=== PATIENT | male | born 1965 | race American Indian/Alaskan Native ===

== ENCOUNTER 2016-06-19 09:32 | Emergency (ER) | payer MEDICAID ==
[2016-06-19 09:40] VITALS: RESP 18; O2SAT 95; BMI 26.3
--- NOTE | 2016-06-19 10:38 | C.PDOC ---
History Of Present Illness 50-year-old male, PMHx includes HIV (Viral load is undetectable, CD4 >1000 as per pt), and COPD, presents to the emergency department with complaints of three -day duration of productive cough (w/ yellow sputum), muscle aches and congestion x3 days. Patient denies vomiting, nausea, diarrhea, fevers, chills, chest pain or any other associated symptoms. No other complaints at this time. States he f/u with his doctor every month. Chief Complaint (Nursing): Cough, Cold, Congestion History Per: Patient History/Exam Limitations: no limitations Onset/Duration Of Symptoms: Days Current Symptoms Are (Timing): Still Present Severity: Moderate Past Medical History Reviewed: Historical Data, Nursing Documentation, Vital Signs Vital Signs: Last Vital Signs Temp 97.5 F L 06/19/16 11:52 Pulse 71 06/19/16 11:52 Resp 18 06/19/16 11:52 BP 101/71 06/19/16 11:52 Pulse Ox 95 06/22/16 22:49 - Medical History PMH: Anxiety, Bronchitis, COPD, Emphysema, Hepatitis (C), HIV, Sexually Transmitted Disease (HIV) Denies: Anemia, Arthritis, Asthma, Bipolar Disorder, Depression, Fractures, Osteoporosis, Paranoia, Pneumonia, Post Traumatic Stress Disorder, Pulmonary Embolism, Chronic Kidney Disease, Rheumatoid Arthritis, Schizophrenia, Sickle Cell Disease, Sleep Apnea Surgical History: Denies: Pacemaker - [facility] Procedures ANESTH INJECT-SPIN CANAL (11/19/13) INJECT STEROID (11/19/13) INJECT/INFUSE NEC (06/22/14) LUMBOSAC SPINE X-RAY NEC (11/19/13) NEBULIZER THERAPY (06/22/14) SPINAL CANAL INJECT NEC (11/19/13) Family History: States: Unknown Family Hx - Social History Hx Tobacco Use: No Hx Alcohol Use: No Hx Substance Use: Yes (heroine, cocaine (12years ago)) - Immunization History Hx Tetanus Toxoid Vaccination: Yes Hx Influenza Vaccination: Yes (11/19/15) Hx Pneumococcal Vaccination: Yes (2014) Review Of Systems Except As Marked, All Systems Reviewed And Found Negative. Constitutional: Positive for: Malaise. Negative for: Fever, Chills ENT: Positive for: Nose Congestion Cardiovascular: Negative for: Chest Pain, Palpitations Respiratory: Positive for: Cough, Sputum. Negative for: Shortness of Breath, Pleuritic Pain Gastrointestinal: Negative for: Nausea, Vomiting, Diarrhea Skin: Negative for: Rash Neurological: Negative for: Weakness, Numbness, Headache, Dizziness Physical Exam - Physical Exam Appears: Non-toxic, No Acute Distress Skin: Warm, Dry, No Rash Head: Atraumatic Eye(s): bilateral: Normal Inspection, PERRL Nose: Normal Lips: Normal Appearing Neck: Normal ROM Cardiovascular: Rhythm Regular Respiratory: Normal Breath Sounds, No Accessory Muscle Use, No Rales, No Rhonchi , No Wheezing Extremity: Normal ROM Neurological/Psych: Oriented x3, Normal Speech ED Course And Treatment O2 Sat by Pulse Oximetry: 95 - Radiology CXR: Viewed By Me, Read By Radiologist CXR Interpretation: Yes: No Acute Disease. No: Infiltrates, Cardiomegaly, Pnemothorax Medical Decision Making Medical Decision Making: Impression Bronchitis Plan * Azithromycin * Reassess and Disposition Dispo: Pt given dose of Zithromax in ED, he will be discharged for outpatient f/u with PMD. All questions answered. Pt agreeable with plan Disposition - Disposition Disposition: HOME/ ROUTINE Disposition Time: 11:24 Condition: STABLE Additional Instructions: Follow up with PMD within 1-2 days. Return to Ed if feel worse. Prescriptions: Promethazine HCl/Codeine [Prometh-Codein 6.25-10 mg/5 ml] 5 ml PO .Q4-6H #150 ml Benzonatate [Tessalon Perles] 2 tab PO TID #60 sgl Albuterol HFA [Ventolin HFA 90 mcg/actuation (8 g)] 1 puff IH .Q4-6H #1 inhaler Azithromycin [Zithromax] 250 mg PO DAILY #4 tab Instructions: Acute Bronchitis (ED) - Clinical Impression Clinical Impression: Bronchitis - Scribe Statement The provider has reviewed the documentation as recorded by the Maryann Turner All medical record entries made by the Jaylonibe were at my direction and personally dictated by me. I have reviewed the chart and agree that the record accurately reflects my personal performance of the history, physical exam, medical decision making, and the department course for this patient. I have also personally directed, reviewed, and agree with the discharge instructions and disposition.
--- NOTE | 2016-06-19 11:47 | RAD ---
HISTORY: productive cough, HIV pos COMPARISON: 12/03/2015 TECHNIQUE: Chest PA and lateral FINDINGS: LUNGS: No focal airspace opacity. PLEURA: No significant pleural effusion identified. No pneumothorax apparent. CARDIOVASCULAR: Normal. OSSEOUS STRUCTURES: No significant abnormalities. VISUALIZED UPPER ABDOMEN: Normal. OTHER FINDINGS: None. IMPRESSION: No focal airspace opacity. No significant interval change.
[2016-06-19 11:54] VITALS: BP 101/71; PULSE 71; TEMP 97.5
== END 2016-06-19 11:58 | disposition home or self-care (01) ==
LOC: C.ER 09:32
DX: J40 Bronchitis, not specified as acute or chronic (principal)

== ENCOUNTER 2016-10-17 13:44 | Emergency (ER) | payer MEDICAID ==
[2016-10-17 13:44] VITALS: BMI 26.3
[2016-10-17 13:52] VITALS: BP 124/85; PULSE 85; RESP 20; TEMP 97.6; O2SAT 98
--- NOTE | 2016-10-17 14:03 | C.PDOC ---
History Of Present Illness 51 y/o male with presents to ED with complaints of constant throbbing chronic back pain 10/10. Patient also reports he has herniated disc in neck and low back that radiates to right leg. Patient states he saw PMD 2 days ago for similar symptoms and was given shot of Toradol which was helpful for pain and advised to follow u with pain management. Patient denies headache, fever, chills, nausea , vomiting or any other complaints at this time. Time Seen by Provider: 10/17/16 13:59 Chief Complaint (Nursing): Back Pain History Per: Patient History/Exam Limitations: no limitations Onset/Duration Of Symptoms: Days Current Symptoms Are (Timing): Still Present Past Medical History Reviewed: Historical Data, Nursing Documentation, Vital Signs Vital Signs: Last Vital Signs Temp 97.6 F 10/17/16 13:48 Pulse 85 10/17/16 13:48 Resp 20 10/17/16 13:48 BP 124/85 10/17/16 13:48 Pulse Ox 98 10/17/16 15:10 - Medical History PMH: Anxiety, Bronchitis, COPD, Emphysema, Hepatitis (C), HIV, Sexually Transmitted Disease (HIV) Surgical History: Denies: Pacemaker - [facility] Procedures ANESTH INJECT-SPIN CANAL (11/19/13) INJECT STEROID (11/19/13) INJECT/INFUSE NEC (06/22/14) LUMBOSAC SPINE X-RAY NEC (11/19/13) NEBULIZER THERAPY (06/22/14) SPINAL CANAL INJECT NEC (11/19/13) Family History: States: Unknown Family Hx - Social History Hx Tobacco Use: No Hx Alcohol Use: No Hx Substance Use: Yes (heroine, cocaine (13 years ago)) - Immunization History Hx Tetanus Toxoid Vaccination: No Hx Influenza Vaccination: Yes (11/19/15) Hx Pneumococcal Vaccination: Yes (2014) Review Of Systems Except As Marked, All Systems Reviewed And Found Negative. Constitutional: Negative for: Fever, Chills Gastrointestinal: Negative for: Nausea, Vomiting Musculoskeletal: Positive for: Neck Pain, Back Pain, Leg Pain Skin: Negative for: Rash Neurological: Negative for: Weakness, Numbness, Headache, Dizziness Physical Exam - Physical Exam Appears: No Acute Distress, Agitated (Mild), Other (Cooperative) Skin: Normal Color, Warm, Dry, No Rash Head: Atraumatic, Normacephalic Eye(s): bilateral: Normal Inspection Oral Mucosa: Moist Chest: Symmetrical Back: No CVA Tenderness, No Decreased ROM, Paraspinal Tenderness (Right) Extremity: Normal ROM, Capillary Refill (<2 seconds) Neurological/Psych: Oriented x3, Normal Speech ED Course And Treatment O2 Sat by Pulse Oximetry: 98 (RA) Pulse Ox Interpretation: Normal Medical Decision Making Medical Decision Making: Plan: * Pain medication * UA Disposition Counseled Patient/Family Regarding: Diagnosis, Need For Followup - Disposition Disposition: HOME/ ROUTINE Disposition Time: 15:09 Condition: STABLE Instructions: Chronic Back Pain (ED) Forms: General Discharge Instructions - Clinical Impression Clinical Impression: Low back pain - Scribe Statement The provider has reviewed the documentation as recorded by the Jaylonibjanice Taveras All medical record entries made by the Jaylonibjanice were at my direction and personally dictated by me. I have reviewed the chart and agree that the record accurately reflects my personal performance of the history, physical exam, medical decision making, and the department course for this patient. I have also personally directed, reviewed, and agree with the discharge instructions and disposition.
[2016-10-17] MEDS ORDERED: Lidocaine 5% Patch TD STA (14:10)
[2016-10-17] MEDS ORDERED: Lidocaine 5% Patch TD ONE (14:16)
[2016-10-17 14:32] LABS: RBC URINE < 1 /hpf (0-3); URINE BILIRUBIN NEGATIVE (NEGATIVE); URINE BLOOD NEGATIVE (NEGATIVE); URINE COLOR Yellow (YELLOW); URINE GLUCOSE (UA) NORMAL (Normal); URINE KETONE NEGATIVE (NEGATIVE); URINE LEUKOCYTE ESTERASE NEG Leu/uL (Negative); URINE PROTEIN NEGATIVE (NEGATIVE); URINE UROBILINOGEN NORMAL mg/dL (0.2-1.0); WBC URINE < 1 /hpf (0-5)
[2016-10-23] MEDS ORDERED: Aluminum Hydroxide/Magnesium Hydroxide Susp (30 mL) ONE (02:56)
== END 2016-10-17 15:13 | disposition home or self-care (01) ==
LOC: C.ER 13:44
DX: M54.5 Low back pain (principal)
CPT/HCPCS: 80324; 80345; 80346; 80349; 80353; 80358; 80361; 81001; 83992; 96372; 99284; J1885

== ENCOUNTER 2018-07-29 12:38 | Emergency (ER) | payer MEDICAID ==
[2018-07-29 12:38] VITALS: BMI 26.3
[2018-07-29 12:44] VITALS: BP 125/81; PULSE 98; RESP 18; TEMP 97.4; O2SAT 96
--- NOTE | 2018-07-29 13:41 | C.PDOC ---
History Of Present Illness 53 year old male with a history of spinal stenosis presents to the ED with worsening back pain over the last few weeks. Patient stated the pain is down the right side of his back and going down into his leg. He is ambulating with a cane and takes Tylenol for the pain. He had an appointment for this issue however it was cancelled due to an upcoming surgery on August 19 (spinal stenosis at [facility] with Dr. Earl). He received a shot of Toradol from Dr. Lagunas last week which helped briefly, but still experiences chronic pain. He denies bowel incontinence and parasthesia. Time Seen by Provider: 07/29/18 12:48 Chief Complaint (Nursing): Back Pain Past Medical History Reviewed: Historical Data, Nursing Documentation, Vital Signs Vital Signs: Last Vital Signs Temp 97.4 F L 07/29/18 12:40 Pulse 98 H 07/29/18 12:40 Resp 18 07/29/18 12:40 BP 125/81 07/29/18 12:40 Pulse Ox 96 07/29/18 12:40 Primary Care Provider: Rolan Lagunas - Medical History PMH: Anxiety, Bronchitis, COPD, Emphysema, Hepatitis (C), HIV, Sexually Transmitted Disease (HIV) Denies: Anemia, Arthritis, Asthma, Bipolar Disorder, Depression, Fractures, Osteoporosis, Paranoia, Pneumonia, Post Traumatic Stress Disorder, Pulmonary Embolism, Chronic Kidney Disease, Rheumatoid Arthritis, Schizophrenia, Sickle Cell Disease, Sleep Apnea Surgical History: Denies: Pacemaker - [facility] Procedures ANESTH INJECT-SPIN CANAL (11/19/13) INJECT STEROID (11/19/13) INJECT/INFUSE NEC (06/22/14) LUMBOSAC SPINE X-RAY NEC (11/19/13) NEBULIZER THERAPY (06/22/14) SPINAL CANAL INJECT NEC (11/19/13) Family History: States: Unknown Family Hx - Social History Hx Tobacco Use: No Hx Alcohol Use: No Hx Substance Use: Yes (heroine, cocaine (13 years ago)) - Immunization History Hx Tetanus Toxoid Vaccination: No Hx Influenza Vaccination: Yes (11/19/15) Hx Pneumococcal Vaccination: Yes (2014) Review Of Systems Constitutional: Negative for: Fever, Chills, Sweats Cardiovascular: Negative for: Chest Pain Gastrointestinal: Negative for: Nausea, Vomiting, Abdominal Pain Genitourinary: Negative for: Incontinence Musculoskeletal: Positive for: Back Pain, Leg Pain Neurological: Negative for: Numbness Physical Exam - Physical Exam Appears: Well, Non-toxic, No Acute Distress Skin: Normal Color, Warm, Dry Head: Atraumatic, Normacephalic Eye(s): bilateral: Normal Inspection Neck: Normal, Supple Chest: Symmetrical Extremity: Tenderness (mild tenderness to PSIS), Capillary Refill <2 Sec, No Swelling Pulses: Left Femoral: Normal, Right Femoral: Normal, Left Dorsalis Pedis: Normal, Right Dorsalis Pedis: Normal Neurological/Psych: Oriented x3, Normal Speech, Normal Cognition, Normal Motor, Normal Sensation, Normal Reflexes Gait: Other (ambulates with pain) ED Course And Treatment O2 Sat by Pulse Oximetry: 96 (RA) Pulse Ox Interpretation: Normal Medical Decision Making Medical Decision Making: Plan: Toradol 60 mg IM Prednisone 60 mg PO Patient stated that Prednisone has helped his back pain in the past, so he is requesting Prednisone and Toradol shot. Disposition Counseled Patient/Family Regarding: Diagnosis, Need For Followup, Rx Given - Disposition Referrals: Rubén Rosario MD [Staff Provider] - Rolan Lagunas MD [Medical Doctor] - Disposition: HOME/ ROUTINE Disposition Time: 13:42 Condition: GOOD Prescriptions: predniSONE [Prednisone] 40 mg PO DAILY #10 tab Instructions: Chronic Pain (DC), Low Back Pain (DC) Forms: [facility] (Frisian), General Discharge Instructions - POA Present On Arrival: None - Clinical Impression Clinical Impression: Low back pain, Acute exacerbation of chronic low back pain - Scribe Statement The provider has reviewed the documentation as recorded by the Scribe (Kacie Bustillo) Provider Attestation: All medical record entries made by the Scribe were at my direction and personally dictated by me. I have reviewed the chart and agree that the record accurately reflects my personal performance of the history, physical exam, medical decision making, and the department course for this patient. I have also personally directed, reviewed, and agree with the discharge instructions and disposition.
== END 2018-07-29 14:05 | disposition home or self-care (01) ==
LOC: C.ER 12:38
DX: G89.29 Other chronic pain (principal); M54.5 Low back pain
CPT/HCPCS: 96372; 99283; J1885